=== PATIENT | female | born 1995 | race American Indian/Alaskan Native ===

== ENCOUNTER 2017-06-17 00:45 | Outpatient (CLI) | payer MEDICAID ==
[2017-06-17] MEDS: LACTATED RINGERS 1,000 ML IV SCH ×2 (01:30→04:00)
[2017-06-17 02:13] LABS: Mean Corpuscular HGB Conc 32 % (30-34); Mean Corpuscular Hemoglobin 27 pg (28-32); Mean Corpuscular Volume 82 fl (79-97); Platelet Count 186 K/mm3 (140-440); Red Blood Count 4.14 M/mm3 (3.65-5.03); Red Cell Distribution Width 14.3 % (13.2-15.2); White Blood Count 8.5 K/mm3 (4.5-11.0)
[2017-06-17 02:20] LABS: Bacteria,Urine 4+ /HPF (Negative); Bilirubin,Urine SM (Negative); Blood,Urine NEG (Negative); Ketones,Urine 80 mg/dL (Negative); Leukocyte Esterase,Urine SM (Negative); Mucus,Urine 3+ /HPF; Nitrite,Urine NEG (Negative)
[2017-06-17 02:22] LABS: Alanine Aminotransferase 13 units/L (7-56); Albumin 3.1 g/dL (3.9-5); Albumin/Globulin Ratio 0.8 %; Alkaline Phosphatase 112 units/L (35-129); Anion Gap 21 mmol/L; BUN/Creatinine Ratio 23.33; Blood Urea Nitrogen 7 mg/dL (7-17); Calcium 9.1 mg/dL (8.4-10.2); Carbon Dioxide 19 mmol/L (22-30); Chloride 101.1 mmol/L (98-107); Glucose 94 mg/dL (65-100); Sodium 137 mmol/L (137-145); Total Protein 7.1 g/dL (6.3-8.2)
[2017-06-17 02:50] VITALS: BP 121/89
[2017-06-17 03:27] LABS: Lactate Dehydrogenase 239 units/L (91-180); Uric Acid 4.5 mg/dL (3.5-7.6)
[2017-06-17] MEDS ORDERED: ROCEPHIN/NS 1 GM/50 ML 1 GM/50 ML BAG IV ONE (03:42)
== END 2017-06-17 04:34 | disposition home or self-care (01) ==
LOC: TRG 00:45
PROVIDERS: ATTEND Obstetrics & Gynecology
DX: O47.1 False labor at or after 37 completed weeks of gestation (principal); Z3A.37 37 weeks gestation of pregnancy
CPT/HCPCS: 36415; 80053; 81001; 82565; 83615; 84550; 85027; 96360; 96365; J0696; J7120; 59025

== ENCOUNTER 2017-06-17 13:45 | Inpatient (IN) | payer MEDICAID ==
[2017-06-17] MEDS ORDERED: BRETHINE IVP PRN (14:15)
[2017-06-17] MEDS ORDERED: XYLOCAINE 2% INFILTRATI ONE (14:15)
[2017-06-17] MEDS ORDERED: BRETHINE SUB-Q PRN (14:15)
[2017-06-17] MEDS ORDERED: STADOL IV PRN (14:15)
[2017-06-17] MEDS ORDERED: PHENERGAN PO PRN ×2 (14:15→22:20)
[2017-06-17] MEDS ORDERED: ZOFRAN IV PRN ×2 (14:15→22:20)
[2017-06-17] MEDS ORDERED: ePHEDrine SULFATE IV PRN ×2 (14:15→19:25)
[2017-06-17] MEDS ORDERED: MINERAL OIL PO PRN (14:15)
[2017-06-17] MEDS ORDERED: SUBLIMAZE IV PRN (14:15)
[2017-06-17] MEDS ORDERED: NARCAN 0.4 MG/1 ML IV PRN (14:15)
[2017-06-17] MEDS ORDERED: PITOCin/NS 30 UNIT/500ML 30 UNITS/500 ML BAG IV SCH ×2 (15:00)
[2017-06-17] MEDS ORDERED: PITOCin/NS 20 UNIT/1000ML DRIP 20 UNITS/1,000 ML BAG IV SCH (15:00)
[2017-06-17 15:32] LABS: Hematocrit 34.4 % (30.3-42.9); Hemoglobin 11.1 gm/dl (10.1-14.3); Mean Corpuscular HGB Conc 32 % (30-34); Mean Corpuscular Hemoglobin 27 pg (28-32); Mean Corpuscular Volume 82 fl (79-97); Platelet Count 200 K/mm3 (140-440); Red Blood Count 4.18 M/mm3 (3.65-5.03); White Blood Count 7.7 K/mm3 (4.5-11.0)
[2017-06-17] MEDS: LACTATED RINGERS 1,000 ML IV SCH ×3 (16:03→20:00)
[2017-06-17] MEDS ORDERED: POLYCILLIN/NS 2 GM/100 ML 2 GM/100 ML BAG IV ONE (16:11)
--- NOTE | 2017-06-17 16:31 | History and Physical Report ---
History of Present Illness Date of examination: 06/17/17 Date of admission: 06/17/17 13:45 Chief complaint: lealking fluid History of present illness: This is a 22 yo at 37 weeks came in c/o leaking. SHe was noted to be grossly ruptured . SHe is a patient of [facility] since 10 we. SHe has hx of pree with initial labs normal and baseline urine 108. SHe was treated in with flagyl for trich and lizzy neg in December. Past History Past Medical History: no pertinent history Past Surgical History: no surgical history [employer] History: trichomonas (treated this ) Family/Genetic History: none Social history: no significant social history. denies: smoking, alcohol abuse, prescription drug abuse - Obstetrical History Expected Date of Delivery: 07/03/17 Actual Gestation: 37 Week(s) 5 Day(s) : 2 Para: 1 Hx # Term Pregnancies: 1 Number of Pregnancies: 0 Spontaneous Abortions: 0 Induced : 0 Number of Living Children: 1 Medications and Allergies Allergies Allergy/AdvReac Type Severity Reaction Status Date / Time No Known Allergies Allergy Unverified 08/13/14 08:33 Home Medications Medication Instructions Recorded Confirmed Last Taken Type No Known Home Medications [No 08/13/14 06/17/17 Unknown History Reported Home Medications] Active Meds: Active Medications Butorphanol Tartrate (Stadol) 2 mg IV Q2H PRN PRN Reason: Pain , Severe (7-10) Fentanyl (Sublimaze) 100 mcg IV Q2H PRN PRN Reason: Labor Pain Lactated Ringer's (Lactated Ringers) 1,000 mls @ 125 mls/hr IV DIRECT RADHA Last Admin: 06/17/17 16:03 Dose: 125 mls/hr Oxytocin/Sodium Chloride (Pitocin/Ns 20 Unit/1000ml Drip) 20 units in 1,000 mls @ 125 mls/hr IV DIRECT RADHA Oxytocin/Sodium Chloride (Pitocin/Ns 30 Unit/500ml) 30 units in 500 mls @ 1 mls /hr IV TITR RADHA; 1 MILLIUNITS/MIN PRN Reason: Protocol Oxytocin/Sodium Chloride (Pitocin/Ns 30 Unit/500ml) 30 units in 500 mls @ 0 mls /hr IV TITR RADHA; As Directed PRN Reason: Protocol Last Admin: 08/17/17 16:02 Dose: 4 ml/hr, 4 mls/hr Mineral Oil (Mineral Oil) 30 ml PO QHS PRN PRN Reason: Constipation Naloxone HCl (Narcan 0.4 Mg/1 Ml) 0.1 mg IV Q2MIN PRN PRN Reason: Res Rate </= 8 or 02 SAT < 92% Ondansetron HCl (Zofran) 4 mg IV Q8H PRN PRN Reason: Nausea And Vomiting Promethazine HCl (Phenergan) 25 mg PO Q6H PRN PRN Reason: Nausea And Vomiting Review of Systems Genitourinary: leakage of fluid - Vital Signs Vital signs: Vital Signs Pulse BP 97 H 130/65 06/17/17 14:04 06/17/17 14:04 Temp Pulse Resp BP Pulse Ox 98.2 F 108 H 20 130/60 06/17/17 15:48 06/17/17 15:49 06/17/17 15:48 06/17/17 15:49 - Physical Exam Breasts: Positive: normal Cardiovascular: Regular rate, Normal S1 Abdomen: Positive: normal appearance, soft, normal bowel sounds. Negative: distention, tenderness Genitourinary (Female): Positive: normal external genitalia, normal perenium Vulva: both: normal Vagina: Positive: normal moisture Uterus: Positive: normal size, enlarged, normal contour Anus/Rectum: Positive: normal perianal skin, heme negative Extremities: Positive: normal Deep Tendon Reflex Grade: Normal +2 - Obstetrical Cervical Dilatation: 4 Cervical Effacement Percentage: 80 station: -2 Uterine Contraction Pattern: Irregular Uterine Tone Measurement Phase: Contraction Uterine Contraction Intensity: Mild Results Result Diagrams: 06/17/17 14:57 Abnormal lab results 06/17/17 Range/Units 14:57 MCH 27 L (28-32) pg All other labs normal. Assessment and Plan A/P IUP 37 + weeks PROM clear at 1230 GBS + Amp initiated augment with pitocin as needed offer epidural expect vaginal delivery
[2017-06-17] MEDS ORDERED: POLYCILLIN/NS 2 GM/100 ML 2 GM/100 ML BAG IV SCH (18:00)
[2017-06-17] MEDS ORDERED: ePHEDrine SULFATE ONE (18:45)
[2017-06-17] MEDS ORDERED: NARCAN 2 MG/2 ML IV PRN (19:25)
--- NOTE | 2017-06-17 19:25 | Anesthesia Consultation ---
Anesthesia Consult and Med Hx Date of service: 06/17/17 - Airway Anesthetic Teeth Evaluation: Good ROM Head & Neck: Adequate Mental/Hyoid Distance: Adequate Mallampati Class: Class II Intubation Access Assessment: Probably Good - Pulmonary Exam CTA: Yes - Cardiac Exam Cardiac Exam: RRR - Pre-Operative Health Status ASA Pre-Surgery Classification: ASA2 Proposed Anesthetic Plan: Epidural - Pulmonary Hx Asthma: No - Cardiovascular System Hx Hypertension: No - Central Nervous System Hx Seizures: No Hx Psychiatric Problems: No - Endocrine Hx Renal Disease: No Hx Hypothyroidism: No Hx Hyperthyroidism: No - Hematic Hx Anemia: No Hx Sickle Cell Disease: No - Other Systems Hx Alcohol Use: No
[2017-06-17] MEDS ORDERED: fentaNYL-BUPIV 2 MCG/ML-0.125% 200 MCG/100 ML BAG EPIDURAL SCH (20:00)
--- NOTE | 2017-06-17 21:21 | Procedure Note ---
OB Delivery Note - Delivery Date of Delivery: 06/17/17 Surgeon: DEANDRA GARDUNO Estimated blood loss: 100cc - Vaginal Delivery presentation: vertex Delivery position: OA Delivery induction: none Delivery augmentation: pitocin Delivery monitor: external FHT, external uterine Route of delivery: Delivery placenta: spontaneous Delivery cord: nuchal cord, 3 umbilical vessels Delivery laceration: none Anesthesia: epidural Delivery comments: Viable female delivered over intact perineum with loose nuchal cord easily reduced on the perineum. Weight 5 pounds 15 ounces. Apgars 8,9. placed on maternal abdomen. Cord clamped and cut when done pulsating. Placenta delivered spontaneously and intact with 3vc. No lacerations. Patient tolerated procedure well. Excellent hemostasis - A at 1 minute: 8 at 5 minutes: 9 Gender: Female
[2017-06-17] MEDS ORDERED: MILK OF MAGNESIA PO PRN (22:20)
[2017-06-17] MEDS ORDERED: DULCOLAX PR PRN (22:20)
[2017-06-17] MEDS ORDERED: TUCKS PAD TP PRN (22:20)
[2017-06-17] MEDS ORDERED: PHENERGAN PR PRN (22:20)
[2017-06-17] MEDS ORDERED: LANSINOH TP PRN (22:20)
[2017-06-17] MEDS ORDERED: SODIUM CHLORIDE FLUSH SYRINGE 10 ML IV PRN (22:20)
[2017-06-17] MEDS ORDERED: BENADRYL PO PRN (22:20)
[2017-06-17] MEDS ORDERED: TYLENOL PO PRN (22:20)
[2017-06-17] MEDS: COLACE PO SCH (23:35)
[2017-06-17] MEDS: MOTRIN PO SCH (23:36)
[2017-06-18] MEDS: MOTRIN PO SCH ×2 (05:11→13:48)
[2017-06-18 08:07] LABS: Hematocrit 30.6 % (30.3-42.9); Hemoglobin 9.9 gm/dl (10.1-14.3)
--- NOTE | 2017-06-18 08:38 | Progress Note ---
Assessment and Plan A: PPD#1 s/p at term, asymptomatic anemia P: Routine care. Subjective - Subjective Date of service: 06/18/17 Principal diagnosis: s/p at term Interval history: Pt c/o uterine cramping. Otherwise no complaints. Patient reports: appetite normal, voiding normally, ambulating normally [place]: doing well Objective - Vital Signs Latest vital signs: Vital Signs Temp Pulse Resp BP Pulse Ox 06/18/17 04:50 98.5 F 86 20 123/56 06/17/17 22:30 98.5 F 80 20 131/58 06/17/17 21:58 89 100 06/17/17 21:54 104 H 132/60 46 L 06/17/17 21:53 88 100 06/17/17 21:48 88 100 06/17/17 21:43 88 100 06/17/17 21:39 89 127/58 06/17/17 21:38 87 100 06/17/17 21:33 94 H 100 06/17/17 21:28 98 H 100 06/17/17 21:24 95 H 124/59 06/17/17 21:23 98 H 100 06/17/17 21:18 95 H 100 06/17/17 21:13 99 H 135/65 100 06/17/17 21:07 105 H 137/63 06/17/17 20:57 103 H 100 06/17/17 20:54 110 H 147/62 06/17/17 20:53 125 H 192/70 06/17/17 20:52 119 H 100 06/17/17 20:50 136 H 196/103 84 06/17/17 20:47 114 H 100 06/17/17 20:46 117 H 158/70 06/17/17 20:44 116 H 154/71 06/17/17 20:43 111 H 151/59 06/17/17 20:42 97 H 100 06/17/17 20:40 106 H 113/83 06/17/17 20:38 104 H 112/71 06/17/17 20:37 104 H 100 06/17/17 20:36 113 H 114/56 06/17/17 20:34 96 H 112/59 06/17/17 20:32 93 H 111/64 100 06/17/17 20:30 93 H 128/66 06/17/17 20:27 109 H 100 06/17/17 20:26 92 H 89 06/17/17 20:24 88 128/60 06/17/17 20:22 96 H 100 06/17/17 20:21 95 H 123/58 06/17/17 20:18 91 H 113/60 06/17/17 20:17 89 100 06/17/17 20:16 80 111/54 06/17/17 20:14 81 114/57 06/17/17 20:12 83 118/82 100 06/17/17 20:10 83 114/63 06/17/17 20:08 86 116/58 06/17/17 20:07 91 H 100 06/17/17 20:06 89 110/65 06/17/17 20:04 88 120/65 06/17/17 20:02 98 H 113/56 100 06/17/17 20:00 75 123/57 06/17/17 19:58 103 H 147/65 06/17/17 19:57 95 H 100 06/17/17 19:55 105 H 143/66 06/17/17 19:54 93 H 163/69 06/17/17 19:52 86 153/67 100 06/17/17 19:50 93 H 146/62 06/17/17 19:48 80 143/63 06/17/17 19:47 79 100 06/17/17 19:46 86 144/63 06/17/17 19:44 78 143/63 06/17/17 19:42 82 144/65 100 06/17/17 19:40 88 142/65 06/17/17 19:38 83 130/65 06/17/17 19:37 96 H 100 06/17/17 19:36 75 128/70 06/17/17 19:34 93 H 116/67 06/17/17 19:32 89 110/51 100 06/17/17 19:30 85 128/58 06/17/17 19:28 99 H 125/61 06/17/17 19:27 91 H 100 06/17/17 19:26 93 H 131/72 06/17/17 19:24 93 H 97/44 06/17/17 19:22 78 98/51 100 06/17/17 19:18 83 142/92 06/17/17 19:17 106 H 96 06/17/17 19:16 95 H 117/57 06/17/17 19:14 86 121/56 06/17/17 19:12 96 H 121/59 06/17/17 19:11 89 100 06/17/17 19:10 85 122/58 06/17/17 19:09 89 150/59 06/17/17 19:06 86 135/61 100 06/17/17 19:05 114 H 75 L 06/17/17 19:04 76 129/60 06/17/17 19:02 86 131/60 06/17/17 19:00 97.1 F L 86 20 144/63 100 06/17/17 18:06 97.9 F 80 18 115/70 06/17/17 15:49 108 H 130/60 06/17/17 15:48 98.2 F 80 20 118/58 06/17/17 15:44 105 H 118/58 06/17/17 15:18 80 133/63 06/17/17 15:05 100 H 130/61 06/17/17 14:48 93 H 113/57 06/17/17 14:33 82 129/60 06/17/17 14:18 83 122/60 06/17/17 14:04 97 H 130/65 Intake and Output 06/17/17 06/18/17 06/18/17 22:59 06:59 14:59 Intake Total 2200 828 Output Total 800 Balance 2200 28 Intake: IV 2200 188 Lactated Ringers 1,000 ml 2000 @ 125 mls/hr IV DIRECT RADHA Rx#:[id number] PITOCin/NS 20 UNIT/1000ML 200 188 DRIP 20 units In 1,000 ml @ 125 mls/hr IV DIRECT RADHA Rx#:[id number] Oral 640 Output: Urine 800 Void 800 Other: Total, Intake Amount 240 Total, Output Amount 400 Weight 100.244 kg Estimated Blood Loss 100 - Exam Breasts: Present: deferred Cardiovascular: Present: Regular rate Lungs: Present: Clear to auscultation Abdomen: Present: soft (obese) Uterus: Present: fundal height at umbilicus Extremities: Present: normal - Labs Labs: Abnormal lab results 06/17/17 06/18/17 Range/Units 14:57 07:43 Hgb 9.9 L (10.1-14.3) gm/dl MCH 27 L (28-32) pg
[2017-06-18] MEDS: NORCO 5/325 PO PRN (08:42)
[2017-06-18] MEDS ORDERED: PRENATAL VITAMIN PO SCH (10:00)
--- NOTE | 2017-06-18 10:57 | Progress Note ---
Subjective Date of service: 06/18/17 Interval history: 1st day after normal vaginal delivery Patient is in the bed, comfortable. Pain is well controlled with pain meds. Ambulated well. No residual neurological deficit. No anesthesia complications Objective - Constitutional Vitals: Vital Signs - 12hr 06/18/17 06/18/17 04:50 09:25 Temperature 98.5 F 97 F L Pulse Rate 86 89 Respiratory 20 18 Rate Blood Pressure 123/56 117/53 - Labs CBC & Chem 7: 06/18/17 07:43 Labs: Abnormal lab results 06/17/17 06/18/17 Range/Units 14:57 07:43 Hgb 9.9 L (10.1-14.3) gm/dl MCH 27 L (28-32) pg
[2017-06-18] MEDS: COLACE PO SCH (13:49)
[2017-06-19] MEDS: COLACE PO SCH (00:44)
[2017-06-19] MEDS: MOTRIN PO SCH ×4 (00:44→22:57)
[2017-06-19] MEDS ORDERED: BOOSTRIX IM ONE (06:00)
--- NOTE | 2017-06-19 11:31 | Progress Note ---
Assessment and Plan PPD 2 s/p . Doing well. Plan for discharge on today Subjective - Subjective Date of service: 06/19/17 Principal diagnosis: s/p at term Patient reports: appetite normal, voiding normally, pain well controlled, ambulating normally [place]: doing well Objective - Vital Signs Latest vital signs: Vital Signs Temp Pulse Resp BP 06/19/17 00:00 98.4 F 80 20 126/59 06/18/17 16:50 76 18 128/63 Intake and Output 06/18/17 06/19/17 06/19/17 22:59 06:59 14:59 Intake Total 480 240 Balance 480 240 Intake: Oral 480 Intake, Free Water 240 Other: Total, Intake Amount 240 # Voids Void 1 1 - Exam Breasts: Present: deferred Cardiovascular: Present: Regular rate, Normal S1 Lungs: Present: Clear to auscultation, Normal air movement Abdomen: Present: normal appearance, soft Extremities: Present: normal
--- NOTE | 2017-06-19 11:33 | Discharge Summary ---
Providers - Providers Date of Admission: 06/17/17 13:45 Date of discharge: 06/19/17 Attending physician: BONG TEJADA MD Primary care physician: BONG TEJADA MD Hospitalization Reason for admission: active labor Delivery: Laceration: none complications: none Discharge diagnosis: IUP at term delivered [place] baby: female Hospital course: unremarkable Condition at discharge: Good Disposition: DC-01 TO HOME OR SELFCARE Plan - Discharge Medications Prescriptions: Ferrous Sulfate [Feosol 325 MG tab] 325 mg PO BID #60 tablet HYDROcodone/APAP 5-325 [Justin 5/325] 1 each PO Q6HR PRN #30 tablet PRN Reason: Pain Ibuprofen [Motrin] 600 mg PO Q6H PRN #30 tablet PRN Reason: Pain - Provider Discharge Summary Activity: routine, no sex for 6 weeks, no heavy lifting 4 weeks, no strenuous exercise Additional instructions: [] Smoking cessation referral if applicable(refer to patient education folder for contact #) [] Refer to [facility]'s [facility] Booklet Call your doctor immediately for: * Fever > 100.5 * Heavy vaginal bleeding ( >1 pad per hour) * Severe persistent headache * Shortness of breath * Reddened, hot, painful area to leg or breast * Drainage or odor from incision. * Keep incision clean and dry at all times and follow doctor's instructions regarding bathing/showering - Follow up plan Follow up: BONG TEJADA MD [Primary Care Provider] - 6 Weeks Forms: [facility] Discharge Summary, Discharge Signature Page
[2017-06-19 16:54] VITALS: BP 145/62
[2017-06-19] MEDS: NORCO 5/325 PO PRN (22:57)
== END 2017-06-19 23:35 | disposition home or self-care (01) | DRG 775 ==
LOC: LD 13:45 → OB 22:19
PROVIDERS: ADMIT Obstetrics & Gynecology; ATTEND Obstetrics & Gynecology
PROC: 00HU33Z Insertion of Infusion Device into Spinal Canal, Percutaneous Approach (ICD-10-PCS; principal; 2017-06-17)
PROC: 3E0S3CZ (ICD-10-PCS; principal; 2017-06-17)
PROC: 10E0XZZ Delivery of Products of Conception, External Approach (ICD-10-PCS; principal; 2017-06-17)
DX: O99.824 Streptococcus B carrier state complicating childbirth (principal); Z3A.37 37 weeks gestation of pregnancy; Z37.0 Single live birth; O42.92 Full-term premature rupture of membranes, unspecified as to length of time between rupture and onset of labor; O69.1XX0 Labor and delivery complicated by cord around neck, with compression, not applicable or unspecified; O99.03 Anemia complicating the puerperium; D64.9 Anemia, unspecified
CPT/HCPCS: 36415; 85014; 85018; 85027; 86592; 86850; 86900; 86901; 90471; 90715; 99211; A6250; G0463; J0290; J0595; J2590; J7120